=== PATIENT | male | born 1955 | race Caucasian/White ===

== ENCOUNTER 2017-07-04 09:38 | Inpatient (IN) ==
[2017-07-04] MEDS ORDERED: SODIUM CHLORIDE 0.9% 1,000 ML IV STA (10:03)
[2017-07-04 10:37] LABS: Basophils % 0.3 % (0.0-0.8); Eosinophils % 0.4 % (0.00-10.9); Hematocrit 38.7 VOL% (42.0-52.0); Hemoglobin 12.7 GM/DL (14.0-18.0); Immature Granulocytes % 0.4 %; Immature Granulocytes Absolute 0.04 #; Lymphocytes # 1.6 10*3/uL (1.4-4.0); Lymphocytes % 14.5 % (21.2-54.2); Mean Corpuscular HGB Conc 32.8 GM/DL (32-36); Mean Corpuscular Hemoglobin 27 PG (27-34); Mean Corpuscular Volume 83.2 FL (87-102); Mean Platelet Volume 9.7 FL (9.6-12.0); Monocytes # 0.5 10*3/uL (0.11-0.8); Monocytes % 4.9 % (1.7-12.7); Neutrophils # 8.9 10*3/uL (1.4-7.4); Neutrophils % 79.5 % (38.7-73.9); Platelet Count 249 T/CUMM (130-400); Red Blood Count 4.65 MC/CUMM (3.8-5.5); Red Cell Distribution Width 14.1 % (9.3-17.3); White Blood Count 11.1 T/CUMM (4-12)
[2017-07-04 10:41] LABS: Apearance,Urine CLEAR (Clear); Bilirubin,Urine Negative (Negative); Blood, Urine Negative (Negative); Glucose,Urine (UA) Negative (Negative); Hyaline Casts,Urine 2 /LPF (0-3); Ketones,Urine 5 mg/dL (Negative); Mucus,Urine Occasional /LPF (Occasional); Nitrite,Urine Negative (Negative); Protein,Urine 30 MG/DL; RBC,Urine <1 /HPF (0-4); Squamous Epithelial Cell,Urine Occasional /HPF (0-10); Urine Color Yellow (Yellow); Urine Specific Gravity 1.021 (1.001-1.035); Urine Urobilinogen < 2.0 EU/DL (0.2-1.0); WBC,Urine 1 /HPF (0-6)
[2017-07-04 11:03] LABS: Albumin 4.4 G/DL (3.4-5.0); Bilirubin,Total 0.5 MG/DL (0.2-1.0); Calcium 9.2 MG/DL (8.5-10.1); Osmolality,Calculated 280.8 MOS/KG (273-304); Potassium 3.9 MMOL/L (3.5-5.1)
[2017-07-04] MEDS ORDERED: ONDANSETRON 4 MG/2 ML VIAL IV STA (11:21)
[2017-07-04] MEDS ORDERED: HYDROmorphone 2 MG/1 ML VIAL IV STA (11:21)
[2017-07-04] MEDS ORDERED: ONDANSETRON 4 MG/2 ML VIAL ONE (11:40)
[2017-07-04] MEDS ORDERED: HYDROmorphone 2 MG/1 ML VIAL ONE (11:40)
[2017-07-04] MEDS ORDERED: ONDANSETRON 4 MG/2 ML VIAL IV PRN (14:02)
[2017-07-04] MEDS: HYDROmorphone 2 MG/1 ML VIAL IV PRN ×3 (14:19→21:33)
[2017-07-04] MEDS ORDERED: CIPROFLOXACIN INJ 400 MG in PREMIX 1 EACH IV SCH (15:00)
[2017-07-04] MEDS ORDERED: GLUCAGON 1 MG VIAL IM PRN (15:37)
[2017-07-04] MEDS ORDERED: DEXTROSE 50% 25 GM/50 ML VIAL IV PRN (15:37)
[2017-07-04] MEDS ORDERED: metroNIDAZOLE INJ 500 MG in PREMIX 1 EACH IV SCH (16:00)
[2017-07-04] MEDS: FAMOTIDINE 20 MG/2 ML VIAL IV SCH (16:59)
[2017-07-04] MEDS: SODIUM CHLORIDE 0.9% 1,000 ML IV SCH (17:02)
[2017-07-04] MEDS: INSULIN LISPRO 100 UNIT/ML SUBCUT SCH ×2 (17:21→21:25)
[2017-07-04] MEDS: BISACODYL 5 MG TABLET PO SCH (21:33)
[2017-07-05] MEDS: HYDROmorphone 2 MG/1 ML VIAL IV PRN ×8 (01:21→22:01)
[2017-07-05] MEDS: SODIUM CHLORIDE 0.9% 1,000 ML IV SCH ×3 (02:00→22:22)
[2017-07-05 05:42] LABS: Albumin 3.6 G/DL (3.4-5.0); Bilirubin,Total 1.3 MG/DL (0.2-1.0); Calcium 8.6 MG/DL (8.5-10.1); Magnesium 2.1 MG/DL (1.8-2.4); Osmolality,Calculated 283.4 MOS/KG (273-304); Potassium 4.3 MMOL/L (3.5-5.1); Total Protein 6.8 G/DL (6.4-8.3)
[2017-07-05] MEDS: DESVENLAFAXINE 50 MG TABLET PO SCH (09:57)
[2017-07-05] MEDS: amLODIPine 10 MG TABLET PO SCH (09:57)
[2017-07-05] MEDS: INSULIN LISPRO 100 UNIT/ML SUBCUT SCH ×4 (09:57→21:32)
[2017-07-05] MEDS: FAMOTIDINE 20 MG/2 ML VIAL IV SCH (15:27)
[2017-07-05] MEDS: PANTOPRAZOLE 40 MG VIAL IV SCH (21:33)
[2017-07-05] MEDS: BISACODYL 5 MG TABLET PO SCH (21:33)
[2017-07-06] MEDS: oxyCODONE/ACETAMINOPHEN 5-325 MG TABLET PO PRN ×3 (01:21→15:44)
[2017-07-06] MEDS: HYDROmorphone 2 MG/1 ML VIAL IV PRN ×6 (04:10→21:21)
[2017-07-06] MEDS: INSULIN LISPRO 100 UNIT/ML SUBCUT SCH ×4 (08:53→21:24)
[2017-07-06] MEDS: PANTOPRAZOLE 40 MG VIAL IV SCH ×2 (08:54→21:21)
[2017-07-06] MEDS: DESVENLAFAXINE 50 MG TABLET PO SCH (08:56)
[2017-07-06] MEDS: amLODIPine 10 MG TABLET PO SCH (08:56)
[2017-07-06] MEDS: SODIUM CHLORIDE 0.9% 1,000 ML IV SCH ×2 (09:52→22:40)
[2017-07-06] MEDS: METOPROLOL SUCCINATE XL 100 MG TABLET PO SCH (11:39)
[2017-07-06] MEDS: LEVOFLOXACIN INJ 250 MG in PREMIX 1 EACH IV SCH (14:28)
[2017-07-06] MEDS: metroNIDAZOLE INJ 500 MG in PREMIX 1 EACH IV SCH ×2 (15:41→23:19)
[2017-07-06] MEDS ORDERED: LABETALOL 20 MG/4 ML SYRINGE IV PRN (16:52)
[2017-07-06] MEDS: hydrALAZINE 25 MG TABLET PO SCH (21:21)
[2017-07-06] MEDS: BISACODYL 5 MG TABLET PO SCH (21:21)
[2017-07-06] MEDS: DEXTROSE 5% NACL 0.45% 1,000 ML IV SCH (21:21)
[2017-07-07] MEDS: oxyCODONE/ACETAMINOPHEN 5-325 MG TABLET PO PRN ×2 (00:14→05:28)
[2017-07-07] MEDS: HYDROmorphone 2 MG/1 ML VIAL IV PRN ×6 (02:15→23:31)
[2017-07-07 05:54] LABS: Basophils % 0.3 % (0.0-0.8); Eosinophils # 0.2 10*3/uL (0.0-0.87); Eosinophils % 1.7 % (0.00-10.9); Hematocrit 34.1 VOL% (42.0-52.0); Hemoglobin 11.3 GM/DL (14.0-18.0); Immature Granulocytes % 0.3 %; Immature Granulocytes Absolute 0.03 #; Lymphocytes # 1.5 10*3/uL (1.4-4.0); Lymphocytes % 15.9 % (21.2-54.2); Mean Corpuscular HGB Conc 33.1 GM/DL (32-36); Mean Corpuscular Hemoglobin 28 PG (27-34); Mean Platelet Volume 9.7 FL (9.6-12.0); Monocytes # 0.6 10*3/uL (0.11-0.8); Monocytes % 6.4 % (1.7-12.7); Neutrophils # 6.9 10*3/uL (1.4-7.4); Neutrophils % 75.4 % (38.7-73.9); Platelet Count 217 T/CUMM (130-400); Red Blood Count 4.11 MC/CUMM (3.8-5.5); Red Cell Distribution Width 13.7 % (9.3-17.3); White Blood Count 9.2 T/CUMM (4-12)
[2017-07-07] MEDS: DEXTROSE 5% NACL 0.45% 1,000 ML IV SCH ×2 (05:55→19:59)
[2017-07-07 06:20] LABS: Calcium 8.9 MG/DL (8.5-10.1); Osmolality,Calculated 278.7 MOS/KG (273-304); Potassium 3.9 MMOL/L (3.5-5.1)
[2017-07-07] MEDS: INSULIN LISPRO 100 UNIT/ML SUBCUT SCH ×4 (08:43→21:45)
[2017-07-07] MEDS: PANTOPRAZOLE 40 MG VIAL IV SCH ×2 (10:07→21:43)
[2017-07-07] MEDS: DESVENLAFAXINE 50 MG TABLET PO SCH (10:09)
[2017-07-07] MEDS: METOPROLOL SUCCINATE XL 100 MG TABLET PO SCH (10:10)
[2017-07-07] MEDS: metroNIDAZOLE INJ 500 MG in PREMIX 1 EACH IV SCH ×3 (10:10→23:32)
[2017-07-07] MEDS: amLODIPine 10 MG TABLET PO SCH (10:10)
[2017-07-07] MEDS: hydrALAZINE 25 MG TABLET PO SCH ×2 (10:10→21:43)
[2017-07-07] MEDS: LEVOFLOXACIN INJ 250 MG in PREMIX 1 EACH IV SCH (15:02)
[2017-07-07] MEDS: BISACODYL 5 MG TABLET PO SCH (21:43)
[2017-07-08] MEDS: HYDROmorphone 2 MG/1 ML VIAL IV PRN ×6 (02:40→22:45)
[2017-07-08 05:14] LABS: Basophils % 0.4 % (0.0-0.8); Eosinophils # 0.1 10*3/uL (0.0-0.87); Eosinophils % 1.9 % (0.00-10.9); Hematocrit 30.9 VOL% (42.0-52.0); Hemoglobin 10.6 GM/DL (14.0-18.0); Immature Granulocytes % 1.2 %; Immature Granulocytes Absolute 0.09 #; Lymphocytes # 1.7 10*3/uL (1.4-4.0); Lymphocytes % 22.7 % (21.2-54.2); Mean Corpuscular HGB Conc 34.3 GM/DL (32-36); Mean Corpuscular Hemoglobin 28 PG (27-34); Mean Corpuscular Volume 80.7 FL (87-102); Mean Platelet Volume 9.8 FL (9.6-12.0); Monocytes # 0.5 10*3/uL (0.11-0.8); Monocytes % 6.4 % (1.7-12.7); Neutrophils # 5.1 10*3/uL (1.4-7.4); Neutrophils % 67.4 % (38.7-73.9); Platelet Count 253 T/CUMM (130-400); Red Blood Count 3.83 MC/CUMM (3.8-5.5); Red Cell Distribution Width 13.6 % (9.3-17.3); White Blood Count 7.5 T/CUMM (4-12)
[2017-07-08 05:44] LABS: Calcium 8.4 MG/DL (8.5-10.1); Osmolality,Calculated 278.5 MOS/KG (273-304); Potassium 3.5 MMOL/L (3.5-5.1)
[2017-07-08] MEDS: metroNIDAZOLE INJ 500 MG in PREMIX 1 EACH IV SCH ×3 (07:59→22:44)
[2017-07-08] MEDS: INSULIN LISPRO 100 UNIT/ML SUBCUT SCH ×4 (08:00→21:40)
[2017-07-08] MEDS: PANTOPRAZOLE 40 MG VIAL IV SCH ×2 (09:19→20:06)
[2017-07-08] MEDS ORDERED: PROPOFOL 200 MG/20 ML VIAL IV ONE (12:09)
[2017-07-08] MEDS ORDERED: LIDOCAINE 2% 5 ML VIAL ONE (12:09)
[2017-07-08 13:26] LABS: AFP Tumor 1.6 NG/ML (0-8); Cancer Antigen 19-9 11.8 U/ML (0-37); Carcinoembryonic Antigen 1.2 NG/ML (0.0-5.0)
[2017-07-08] MEDS: LEVOFLOXACIN INJ 250 MG in PREMIX 1 EACH IV SCH (14:45)
[2017-07-08] MEDS: hydrALAZINE 25 MG TABLET PO SCH (14:45)
[2017-07-08] MEDS: METOPROLOL SUCCINATE XL 100 MG TABLET PO SCH (14:45)
[2017-07-08] MEDS: amLODIPine 10 MG TABLET PO SCH (14:45)
[2017-07-08] MEDS: DESVENLAFAXINE 50 MG TABLET PO SCH (14:46)
[2017-07-08] MEDS: DEXTROSE 5% NACL 0.45% 1,000 ML IV SCH ×2 (14:47→22:48)
[2017-07-08] MEDS: BISACODYL 5 MG TABLET PO SCH (20:04)
[2017-07-09] MEDS: HYDROmorphone 2 MG/1 ML VIAL IV PRN ×4 (02:10→18:39)
[2017-07-09 06:31] LABS: Basophils % 0.4 % (0.0-0.8); Eosinophils # 0.2 10*3/uL (0.0-0.87); Eosinophils % 3.2 % (0.00-10.9); Hemoglobin 9.4 GM/DL (14.0-18.0); Immature Granulocytes % 0.4 %; Immature Granulocytes Absolute 0.02 #; Lymphocytes # 1.5 10*3/uL (1.4-4.0); Lymphocytes % 30.1 % (21.2-54.2); Mean Corpuscular HGB Conc 33.6 GM/DL (32-36); Mean Corpuscular Hemoglobin 27 PG (27-34); Mean Corpuscular Volume 81.4 FL (87-102); Mean Platelet Volume 9.8 FL (9.6-12.0); Monocytes # 0.4 10*3/uL (0.11-0.8); Monocytes % 7.4 % (1.7-12.7); Neutrophils # 2.9 10*3/uL (1.4-7.4); Neutrophils % 58.5 % (38.7-73.9); Platelet Count 218 T/CUMM (130-400); Red Blood Count 3.44 MC/CUMM (3.8-5.5); Red Cell Distribution Width 13.9 % (9.3-17.3)
[2017-07-09 06:52] LABS: Osmolality,Calculated 277.7 MOS/KG (273-304); Potassium 3.4 MMOL/L (3.5-5.1)
[2017-07-09] MEDS: metroNIDAZOLE INJ 500 MG in PREMIX 1 EACH IV SCH ×3 (07:30→15:55)
[2017-07-09] MEDS: amLODIPine 10 MG TABLET PO SCH (09:05)
[2017-07-09] MEDS: METOPROLOL SUCCINATE XL 100 MG TABLET PO SCH (09:05)
[2017-07-09] MEDS: DESVENLAFAXINE 50 MG TABLET PO SCH (09:05)
[2017-07-09] MEDS: INSULIN LISPRO 100 UNIT/ML SUBCUT SCH ×4 (09:30→21:34)
[2017-07-09] MEDS: PANTOPRAZOLE 40 MG VIAL IV SCH ×2 (09:48→21:34)
[2017-07-09] MEDS: DEXTROSE 5% NACL 0.45% 1,000 ML IV SCH (12:09)
[2017-07-09] MEDS: LEVOFLOXACIN INJ 250 MG in PREMIX 1 EACH IV SCH (14:50)
[2017-07-09] MEDS: BISACODYL 5 MG TABLET PO SCH (21:34)
[2017-07-10] MEDS: metroNIDAZOLE INJ 500 MG in PREMIX 1 EACH IV SCH ×2 (00:29→07:53)
[2017-07-10] MEDS: DEXTROSE 5% NACL 0.45% 1,000 ML IV SCH ×2 (00:55→17:00)
[2017-07-10 02:21] LABS: Basophils % 0.4 % (0.0-0.8); Eosinophils # 0.2 10*3/uL (0.0-0.87); Eosinophils % 3.6 % (0.00-10.9); Hematocrit 27.8 VOL% (42.0-52.0); Hemoglobin 8.9 GM/DL (14.0-18.0); Immature Granulocytes % 0.4 %; Immature Granulocytes Absolute 0.02 #; Lymphocytes # 1.6 10*3/uL (1.4-4.0); Lymphocytes % 30.4 % (21.2-54.2); Mean Corpuscular Hemoglobin 27 PG (27-34); Mean Corpuscular Volume 83.2 FL (87-102); Mean Platelet Volume 10.1 FL (9.6-12.0); Monocytes # 0.4 10*3/uL (0.11-0.8); Monocytes % 7.1 % (1.7-12.7); Neutrophils % 58.1 % (38.7-73.9); Platelet Count 223 T/CUMM (130-400); Red Blood Count 3.34 MC/CUMM (3.8-5.5); White Blood Count 5.2 T/CUMM (4-12)
[2017-07-10 03:13] LABS: Calcium 7.7 MG/DL (8.5-10.1); Osmolality,Calculated 280.8 MOS/KG (273-304); Potassium 3.4 MMOL/L (3.5-5.1)
[2017-07-10] MEDS: oxyCODONE/ACETAMINOPHEN 5-325 MG TABLET PO PRN ×3 (06:30→23:34)
[2017-07-10] MEDS: INSULIN LISPRO 100 UNIT/ML SUBCUT SCH ×4 (07:53→20:41)
[2017-07-10] MEDS: DESVENLAFAXINE 50 MG TABLET PO SCH (08:08)
[2017-07-10] MEDS: amLODIPine 10 MG TABLET PO SCH (08:08)
[2017-07-10] MEDS: METOPROLOL SUCCINATE XL 100 MG TABLET PO SCH (08:08)
[2017-07-10] MEDS: PANTOPRAZOLE 40 MG VIAL IV SCH (08:09)
[2017-07-10] MEDS: POTASSIUM CHLORIDE 20 MEQ TABLET PO SCH (11:49)
[2017-07-10] MEDS: HYDROmorphone 2 MG/1 ML VIAL IV PRN ×2 (13:13→16:59)
[2017-07-10] MEDS: NITROGLYCERIN SL 0.4 MG TABLET SL PRN ×2 (15:12→15:17)
[2017-07-10 15:43] LABS: Troponin I Only 0.018 NG/ML (0.00-0.045)
[2017-07-10] MEDS: HYDROmorphone 2 MG TABLET PO PRN (20:41)
[2017-07-10] MEDS: BISACODYL 5 MG TABLET PO SCH (20:41)
[2017-07-10 20:48] LABS: Troponin I Only 0.027 NG/ML (0.00-0.045)
[2017-07-11] MEDS: DEXTROSE 5% NACL 0.45% 1,000 ML IV SCH ×2 (00:34→12:34)
[2017-07-11] MEDS: HYDROmorphone 2 MG TABLET PO PRN ×2 (04:36→08:11)
[2017-07-11 05:29] LABS: Basophils % 0.3 % (0.0-0.8); Eosinophils # 0.2 10*3/uL (0.0-0.87); Eosinophils % 2.8 % (0.00-10.9); Hematocrit 29.7 VOL% (42.0-52.0); Hemoglobin 9.7 GM/DL (14.0-18.0); Immature Granulocytes % 0.5 %; Immature Granulocytes Absolute 0.03 #; Lymphocytes # 1.9 10*3/uL (1.4-4.0); Lymphocytes % 32.6 % (21.2-54.2); Mean Corpuscular HGB Conc 32.7 GM/DL (32-36); Mean Corpuscular Hemoglobin 27 PG (27-34); Mean Corpuscular Volume 83.4 FL (87-102); Mean Platelet Volume 9.6 FL (9.6-12.0); Monocytes # 0.4 10*3/uL (0.11-0.8); Monocytes % 6.4 % (1.7-12.7); Neutrophils # 3.3 10*3/uL (1.4-7.4); Neutrophils % 57.4 % (38.7-73.9); Platelet Count 288 T/CUMM (130-400); Red Blood Count 3.56 MC/CUMM (3.8-5.5); Red Cell Distribution Width 14.4 % (9.3-17.3); White Blood Count 5.8 T/CUMM (4-12)
[2017-07-11 05:59] LABS: Calcium 8.3 MG/DL (8.5-10.1); Osmolality,Calculated 280.3 MOS/KG (273-304); Potassium 3.5 MMOL/L (3.5-5.1)
[2017-07-11 06:05] LABS: Troponin I Only 0.018 NG/ML (0.00-0.045)
[2017-07-11] MEDS: INSULIN LISPRO 100 UNIT/ML SUBCUT SCH ×2 (07:14→12:34)
[2017-07-11] MEDS: DESVENLAFAXINE 50 MG TABLET PO SCH (08:10)
[2017-07-11] MEDS: amLODIPine 10 MG TABLET PO SCH (08:10)
[2017-07-11] MEDS: METOPROLOL SUCCINATE XL 100 MG TABLET PO SCH (08:10)
[2017-07-11] MEDS: POTASSIUM CHLORIDE 20 MEQ TABLET PO SCH (08:11)
[2017-07-11 12:02] VITALS: BP 115/55
== END 2017-07-11 13:43 | disposition home or self-care (01) | DRG 439 ==
LOC: N.ED 09:38 → SUATTDRO 12:18 → N.EDINP 12:18 → N.TELEN 13:07
PROVIDERS: ADMIT Pediatrics; ATTEND Hospitalist

== ENCOUNTER 2019-02-02 07:36 | Inpatient (IN) ==
[2019-02-02] MEDS ORDERED: SODIUM CHLORIDE 0.9% 1,000 ML IV STA (08:32)
[2019-02-02 08:44] LABS: Basophils % 0.4 % (0.0-0.8); Eosinophils # 0.1 10*3/uL (0.0-0.87); Eosinophils % 1.9 % (0.00-10.9); Hematocrit 25.5 VOL% (42.0-52.0); Immature Granulocytes % 0.4 %; Immature Granulocytes Absolute 0.02 #; Lymphocytes # 1.7 10*3/uL (1.4-4.0); Lymphocytes % 33.3 % (21.2-54.2); Mean Corpuscular HGB Conc 31.4 GM/DL (32-36); Mean Corpuscular Volume 89.8 FL (87-102); Mean Platelet Volume 9.7 FL (9.6-12.0); Monocytes % 5.6 % (1.7-12.7); Neutrophils % 58.4 % (38.7-73.9); Platelet Count 176 T/CUMM (130-400); Red Blood Count 2.84 MC/CUMM (3.8-5.5); Red Cell Distribution Width 14.6 % (9.3-17.3); White Blood Count 5.2 T/CUMM (4-12)
[2019-02-02 09:06] LABS: Albumin 3.4 G/DL (3.4-5.0); Bilirubin,Total 0.5 MG/DL (0.2-1.0); Calcium 8.6 MG/DL (8.5-10.1); Osmolality,Calculated 297.3 MOS/KG (273-304); Total Protein 6.7 G/DL (6.4-8.3)
[2019-02-02 10:44] LABS: Apearance,Urine CLEAR (Clear); Bilirubin,Urine Negative (Negative); Blood, Urine Negative (Negative); Glucose,Urine (UA) Negative (Negative); Hyaline Casts,Urine 11 /LPF (0-3); Ketones,Urine Negative (Negative); Mucus,Urine Occasional /LPF (Occasional); Nitrite,Urine Negative (Negative); Protein,Urine Negative; Squamous Epithelial Cell,Urine Occasional /HPF (0-10); Urine Color Yellow (Yellow); Urine Urobilinogen < 2.0 EU/DL (0.2-1.0); WBC,Urine <1 /HPF (0-6)
[2019-02-02 10:50] LABS: Barbiturates Screen,Urine Negative (Negative); Benzodiazepines Screen,Urine Negative (Negative); Cannabinoid Screen,Urine Negative (Negative); Opiate Screen,Urine Positive (Negative); Phencyclidine Screen,Urine Negative (Negative)
[2019-02-02] MEDS ORDERED: GLUCAGON 1 MG VIAL IM PRN (13:03)
[2019-02-02] MEDS ORDERED: ONDANSETRON 4 MG/2 ML VIAL IV PRN (13:03)
[2019-02-02] MEDS ORDERED: DEXTROSE 50% 25 GM/50 ML VIAL IV PRN (13:03)
[2019-02-02] MEDS: SODIUM CHLORIDE 0.9% 1,000 ML IV SCH ×2 (14:39→23:45)
[2019-02-02] MEDS: PANTOPRAZOLE 40 MG TABLET PO SCH (15:25)
[2019-02-02] MEDS: INSULIN LISPRO 100 UNIT/ML SUBCUT SCH ×2 (15:39→20:50)
[2019-02-02 16:47] LABS: % Iron Saturation 36.4 % (18-50); Ferritin 356.9 ng/ml (26-388)
[2019-02-02 17:07] LABS: Folate 2.1 NG/ML (5.4-24.0)
[2019-02-02 17:07] LABS: Hemoglobin 8.2 GM/DL (14.0-18.0)
[2019-02-02] MEDS: GABAPENTIN 300 MG CAPSULE PO SCH (21:37)
[2019-02-02] MEDS: CYPROHEPTADINE 4 MG TABLET PO SCH (21:37)
[2019-02-02] MEDS: traZODone 50 MG TABLET PO SCH (23:57)
[2019-02-03 00:57] LABS: Hematocrit 22.9 VOL% (42.0-52.0); Hemoglobin 7.4 GM/DL (14.0-18.0)
[2019-02-03] MEDS ORDERED: SODIUM CHLORIDE 0.9% 1,000 ML IV PRN (03:33)
[2019-02-03 04:45] LABS: Basophils % 0.3 % (0.0-0.8); Eosinophils # 0.1 10*3/uL (0.0-0.87); Eosinophils % 1.1 % (0.00-10.9); Hematocrit 23.2 VOL% (42.0-52.0); Hemoglobin 7.4 GM/DL (14.0-18.0); Immature Granulocytes % 0.5 %; Immature Granulocytes Absolute 0.03 #; Lymphocytes # 1.3 10*3/uL (1.4-4.0); Lymphocytes % 19.1 % (21.2-54.2); Mean Corpuscular HGB Conc 31.9 GM/DL (32-36); Mean Corpuscular Volume 88.5 FL (87-102); Monocytes % 4.3 % (1.7-12.7); Neutrophils % 74.7 % (38.7-73.9); Platelet Count 186 T/CUMM (130-400); Red Blood Count 2.62 MC/CUMM (3.8-5.5); Red Cell Distribution Width 14.3 % (9.3-17.3); White Blood Count 6.6 T/CUMM (4-12)
[2019-02-03 04:46] LABS: Basophils % 0.3 % (0.0-0.8); Eosinophils # 0.1 10*3/uL (0.0-0.87); Eosinophils % 1.1 % (0.00-10.9); Hematocrit 22.8 VOL% (42.0-52.0); Hemoglobin 7.2 GM/DL (14.0-18.0); Immature Granulocytes % 0.3 %; Immature Granulocytes Absolute 0.02 #; Lymphocytes # 1.4 10*3/uL (1.4-4.0); Lymphocytes % 20.7 % (21.2-54.2); Mean Corpuscular HGB Conc 31.6 GM/DL (32-36); Mean Corpuscular Volume 90.1 FL (87-102); Mean Platelet Volume 10.2 FL (9.6-12.0); Monocytes % 5.4 % (1.7-12.7); Neutrophils % 72.2 % (38.7-73.9); Platelet Count 183 T/CUMM (130-400); Red Blood Count 2.53 MC/CUMM (3.8-5.5); Red Cell Distribution Width 14.3 % (9.3-17.3); White Blood Count 6.6 T/CUMM (4-12)
[2019-02-03 05:24] LABS: Ferritin 335.7 ng/ml (26-388)
[2019-02-03 05:27] LABS: Calcium 8.2 MG/DL (8.5-10.1); Osmolality,Calculated 295.8 MOS/KG (273-304); Thyroid Stimulating Hormone 0.239 uIU/ml (0.358-3.74)
[2019-02-03 06:40] LABS: Folate 1.6 NG/ML (5.4-24.0); Vitamin B12 330 PG/ML (211-911)
[2019-02-03 06:44] LABS: Sedimentation Rate-Westergren 17 MM/HR (0-20)
[2019-02-03 07:20] LABS: HIV Antigen/Antibody Result Nonreactive (Nonreactive)
[2019-02-03] MEDS: SODIUM CHLORIDE 0.9% 1,000 ML IV SCH ×7 (07:36→20:48)
[2019-02-03] MEDS: INSULIN LISPRO 100 UNIT/ML SUBCUT SCH ×4 (07:56→21:11)
[2019-02-03] MEDS: CYPROHEPTADINE 4 MG TABLET PO SCH ×3 (08:28→20:42)
[2019-02-03] MEDS: ATORVASTATIN 40 MG TABLET PO SCH (08:28)
[2019-02-03] MEDS: PANTOPRAZOLE 40 MG TABLET PO SCH (08:28)
[2019-02-03] MEDS: ASPIRIN EC 81 MG TABLET PO SCH (08:29)
[2019-02-03] MEDS ORDERED: PROPOFOL 200 MG/20 ML VIAL IV ONE (09:00)
[2019-02-03] MEDS ORDERED: LIDOCAINE 2% 5 ML VIAL ONE (09:00)
[2019-02-03] MEDS ORDERED: FOLIC ACID 1 MG TABLET PO SCH (09:00)
[2019-02-03] MEDS ORDERED: ETOMIDATE 20 MG/10 ML VIAL IV ONE (09:00)
[2019-02-03 09:44] LABS: Hemoglobin A1 (Alkaline) 97.7 % (96.5-98.5); Hemoglobin A2 (Alkaline) 2.3 % (1.5-3.5)
[2019-02-03 13:58] LABS: Hematocrit 30.9 VOL% (42.0-52.0)
[2019-02-03] MEDS ORDERED: MAGNESIUM SULF RIDER 2 GM in PREMIX 1 EACH IV ONE (14:56)
[2019-02-03] MEDS: oxyCODONE/ACETAMINOPHEN 5-325 MG TABLET PO PRN (15:45)
[2019-02-03] MEDS: traZODone 50 MG TABLET PO SCH (20:41)
[2019-02-03] MEDS: DRONABINOL 2.5 MG CAPSULE PO SCH (20:42)
[2019-02-03] MEDS: GABAPENTIN 300 MG CAPSULE PO SCH (20:42)
[2019-02-03] MEDS: ENOXAPARIN 30 MG/0.3 ML SYRINGE SUBCUT SCH (20:44)
[2019-02-04] MEDS: oxyCODONE/ACETAMINOPHEN 5-325 MG TABLET PO PRN ×3 (01:34→20:52)
[2019-02-04 05:33] LABS: Basophils % 0.3 % (0.0-0.8); Eosinophils # 0.1 10*3/uL (0.0-0.87); Eosinophils % 0.9 % (0.00-10.9); Hematocrit 29.4 VOL% (42.0-52.0); Hemoglobin 9.7 GM/DL (14.0-18.0); Immature Granulocytes % 0.3 %; Immature Granulocytes Absolute 0.03 #; Lymphocytes # 1.4 10*3/uL (1.4-4.0); Mean Corpuscular Volume 87.5 FL (87-102); Mean Platelet Volume 10.1 FL (9.6-12.0); Monocytes % 4.7 % (1.7-12.7); Neutrophils % 78.8 % (38.7-73.9); Platelet Count 165 T/CUMM (130-400); Red Blood Count 3.36 MC/CUMM (3.8-5.5); Red Cell Distribution Width 14.2 % (9.3-17.3); White Blood Count 9.2 T/CUMM (4-12)
[2019-02-04 05:44] LABS: Calcium 8.3 MG/DL (8.5-10.1); Osmolality,Calculated 295.6 MOS/KG (273-304)
[2019-02-04 05:53] LABS: Free T4 (Free Thyroxine) 1.12 NG/DL (0.76-1.46)
[2019-02-04] MEDS: SODIUM CHLORIDE 0.9% 1,000 ML IV SCH ×3 (06:29→21:56)
[2019-02-04] MEDS: INSULIN LISPRO 100 UNIT/ML SUBCUT SCH ×3 (07:42→15:32)
[2019-02-04] MEDS: CYPROHEPTADINE 4 MG TABLET PO SCH ×3 (09:00→20:52)
[2019-02-04] MEDS: FOLIC ACID 1 MG TABLET PO SCH (11:44)
[2019-02-04] MEDS: PANTOPRAZOLE 40 MG TABLET PO SCH (11:45)
[2019-02-04] MEDS: MULTIVITAMIN (BEROCCA) TABLET PO SCH (11:45)
[2019-02-04] MEDS: CYANOCOBALAMIN 500 MCG TABLET PO SCH (11:45)
[2019-02-04] MEDS: ATORVASTATIN 40 MG TABLET PO SCH (11:46)
[2019-02-04] MEDS: MAGNESIUM CHLORIDE 64 MG TABLET PO SCH (11:46)
[2019-02-04] MEDS: ASPIRIN EC 81 MG TABLET PO SCH (11:46)
[2019-02-04] MEDS: DRONABINOL 2.5 MG CAPSULE PO SCH (11:46)
[2019-02-04] MEDS: METOPROLOL SUCCINATE XL 50 MG TABLET PO SCH (11:59)
[2019-02-04] MEDS ORDERED: POLYETHYLENE GLYCOL 3350/ELECTROLYTES 4,000 ML BOTTLE PEG ONE (15:43)
[2019-02-04] MEDS: BISACODYL 5 MG TABLET PO SCH (16:31)
[2019-02-04] MEDS: METOCLOPRAMIDE 10 MG/2 ML VIAL IV SCH (17:47)
[2019-02-04] MEDS: POTASSIUM CHLORIDE 20 MEQ/15 ML UDCUP NG SCH ×2 (17:51→20:57)
[2019-02-04] MEDS: GABAPENTIN 300 MG CAPSULE PO SCH (20:52)
[2019-02-04] MEDS: traZODone 50 MG TABLET PO SCH (20:52)
[2019-02-04] MEDS: ENOXAPARIN 30 MG/0.3 ML SYRINGE SUBCUT SCH (20:53)
[2019-02-04] MEDS ORDERED: MAGNESIUM CITRATE 300 ML BOTTLE PO ONE (21:00)
[2019-02-05] MEDS: METOCLOPRAMIDE 10 MG/2 ML VIAL IV SCH ×4 (02:15→18:11)
[2019-02-05] MEDS: oxyCODONE/ACETAMINOPHEN 5-325 MG TABLET PO PRN ×3 (02:47→21:22)
[2019-02-05] MEDS: INSULIN LISPRO 100 UNIT/ML SUBCUT SCH ×5 (02:52→21:26)
[2019-02-05] MEDS: BISACODYL 5 MG TABLET PO SCH (02:53)
[2019-02-05 06:15] LABS: Basophils % 0.2 % (0.0-0.8); Eosinophils % 0.2 % (0.00-10.9); Hematocrit 29.1 VOL% (42.0-52.0); Hemoglobin 9.4 GM/DL (14.0-18.0); Immature Granulocytes % 0.6 %; Immature Granulocytes Absolute 0.07 #; Lymphocytes # 1.2 10*3/uL (1.4-4.0); Lymphocytes % 10.2 % (21.2-54.2); Mean Corpuscular HGB Conc 32.3 GM/DL (32-36); Mean Platelet Volume 10.1 FL (9.6-12.0); Monocytes % 4.1 % (1.7-12.7); Neutrophils % 84.7 % (38.7-73.9); Platelet Count 151 T/CUMM (130-400); Red Blood Count 3.27 MC/CUMM (3.8-5.5); Red Cell Distribution Width 14.4 % (9.3-17.3)
[2019-02-05 06:42] LABS: Calcium 8.4 MG/DL (8.5-10.1); Osmolality,Calculated 292.8 MOS/KG (273-304)
[2019-02-05] MEDS: ASPIRIN EC 81 MG TABLET PO SCH (11:34)
[2019-02-05] MEDS: MAGNESIUM CHLORIDE 64 MG TABLET PO SCH (11:34)
[2019-02-05] MEDS: CYPROHEPTADINE 4 MG TABLET PO SCH ×3 (11:34→21:26)
[2019-02-05] MEDS: CHOLECALCIFEROL 1,000 UNIT TABLET PO SCH (11:34)
[2019-02-05] MEDS: FOLIC ACID 1 MG TABLET PO SCH (11:34)
[2019-02-05] MEDS: POTASSIUM CHLORIDE 20 MEQ/15 ML UDCUP NG SCH ×3 (11:34→21:26)
[2019-02-05] MEDS: CYANOCOBALAMIN 500 MCG TABLET PO SCH (11:35)
[2019-02-05] MEDS: PANTOPRAZOLE 40 MG TABLET PO SCH (11:35)
[2019-02-05] MEDS: MULTIVITAMIN (BEROCCA) TABLET PO SCH (11:35)
[2019-02-05] MEDS: METOPROLOL SUCCINATE XL 50 MG TABLET PO SCH (11:35)
[2019-02-05] MEDS: ATORVASTATIN 40 MG TABLET PO SCH (11:35)
[2019-02-05] MEDS ORDERED: ETOMIDATE 40 MG/20 ML VIAL IV ONE (12:00)
[2019-02-05] MEDS ORDERED: PROPOFOL 200 MG/20 ML VIAL IV ONE (12:00)
[2019-02-05] MEDS: GABAPENTIN 300 MG CAPSULE PO SCH (21:23)
[2019-02-05] MEDS: traZODone 50 MG TABLET PO SCH (21:25)
[2019-02-05] MEDS: ENOXAPARIN 30 MG/0.3 ML SYRINGE SUBCUT SCH (21:25)
[2019-02-05] MEDS: SODIUM CHLORIDE 0.9% 1,000 ML IV SCH (21:30)
[2019-02-06] MEDS: oxyCODONE/ACETAMINOPHEN 5-325 MG TABLET PO PRN ×2 (03:09→08:35)
[2019-02-06 03:23] LABS: Basophils % 0.2 % (0.0-0.8); Eosinophils # 0.1 10*3/uL (0.0-0.87); Hematocrit 28.8 VOL% (42.0-52.0); Hemoglobin 9.3 GM/DL (14.0-18.0); Immature Granulocytes % 0.5 %; Immature Granulocytes Absolute 0.04 #; Lymphocytes # 1.3 10*3/uL (1.4-4.0); Mean Corpuscular HGB Conc 32.3 GM/DL (32-36); Mean Corpuscular Volume 88.1 FL (87-102); Mean Platelet Volume 9.7 FL (9.6-12.0); Monocytes % 4.7 % (1.7-12.7); Neutrophils % 77.6 % (38.7-73.9); Platelet Count 146 T/CUMM (130-400); Red Blood Count 3.27 MC/CUMM (3.8-5.5); Red Cell Distribution Width 14.3 % (9.3-17.3); White Blood Count 8.3 T/CUMM (4-12)
[2019-02-06 03:35] LABS: Calcium 8.1 MG/DL (8.5-10.1); Osmolality,Calculated 289.8 MOS/KG (273-304)
[2019-02-06] MEDS: METOCLOPRAMIDE 10 MG/2 ML VIAL IV SCH ×3 (08:11→12:06)
[2019-02-06] MEDS: BISACODYL 5 MG TABLET PO SCH (08:11)
[2019-02-06] MEDS: ASPIRIN EC 81 MG TABLET PO SCH (08:34)
[2019-02-06] MEDS: CYPROHEPTADINE 4 MG TABLET PO SCH (08:34)
[2019-02-06] MEDS: FOLIC ACID 1 MG TABLET PO SCH (08:34)
[2019-02-06] MEDS: METOPROLOL SUCCINATE XL 50 MG TABLET PO SCH (08:35)
[2019-02-06] MEDS: CHOLECALCIFEROL 1,000 UNIT TABLET PO SCH (08:35)
[2019-02-06] MEDS: CYANOCOBALAMIN 500 MCG TABLET PO SCH (08:35)
[2019-02-06] MEDS: MAGNESIUM CHLORIDE 64 MG TABLET PO SCH (08:36)
[2019-02-06] MEDS: PANTOPRAZOLE 40 MG TABLET PO SCH (08:36)
[2019-02-06] MEDS: MULTIVITAMIN (BEROCCA) TABLET PO SCH (08:36)
[2019-02-06] MEDS: INSULIN LISPRO 100 UNIT/ML SUBCUT SCH ×2 (08:36→11:52)
[2019-02-06] MEDS: ATORVASTATIN 40 MG TABLET PO SCH (08:36)
[2019-02-06 11:58] VITALS: BP 152/72
[2019-02-07 21:31] LABS: IgA Serum (MAYO) 275 mg/dL (61 - 356)
[2019-02-15 14:12] LABS: Tissue Transglutaminase IgA Ab < 1.2 U/mL
== END 2019-02-06 13:29 | disposition home or self-care (01) | DRG 812 ==
LOC: N.ED 07:36 → N.EDINP 07:36 → MERGE 07:36 → N.4E 14:20 → SUATTDRO 02-03 15:04
PROVIDERS: ADMIT Hospitalist; ATTEND Hospitalist

== ENCOUNTER 2019-04-18 17:48 | Observation (INO) ==
[2019-04-18 18:59] LABS: Basophils # 0.1 10*3/uL (0.0-0.2); Basophils % 0.8 % (0.0-0.8); Eosinophils # 0.1 10*3/uL (0.0-0.87); Eosinophils % 1.4 % (0.00-10.9); Immature Granulocytes % 0.3 %; Immature Granulocytes Absolute 0.02 #; Lymphocytes # 2.3 10*3/uL (1.4-4.0); Lymphocytes % 36.1 % (21.2-54.2); Mean Corpuscular Volume 92.9 FL (87-102); Mean Platelet Volume 9.5 FL (9.6-12.0); Monocytes % 5.4 % (1.7-12.7); Platelet Count 305 T/CUMM (130-400); Red Blood Count 2.69 MC/CUMM (3.8-5.5); Red Cell Distribution Width 14.1 % (9.3-17.3); White Blood Count 6.5 T/CUMM (4-12)
[2019-04-18 19:34] LABS: Albumin 3.4 G/DL (3.4-5.0); Bilirubin,Total 0.8 MG/DL (0.2-1.0); Calcium 8.4 MG/DL (8.5-10.1); Osmolality,Calculated 281.4 MOS/KG (273-304); Total Protein 6.6 G/DL (6.4-8.3)
[2019-04-18] MEDS ORDERED: METOCLOPRAMIDE 10 MG/2 ML VIAL IV STA (19:46)
[2019-04-18] MEDS ORDERED: ONDANSETRON 4 MG/2 ML VIAL IV STA (19:46)
[2019-04-18 19:49] LABS: Troponin I < 0.015 NG/ML (0.00-0.045)
[2019-04-18 21:47] LABS: Apearance,Urine CLEAR (Clear); Bacteria,Urine Occasional /HPF (Few); Bilirubin,Urine Negative (Negative); Blood, Urine Negative (Negative); Glucose,Urine (UA) Negative (Negative); Hyaline Casts,Urine 7 /LPF (0-3); Ketones,Urine Negative (Negative); Mucus,Urine Occasional /LPF (Occasional); Nitrite,Urine Positive (Negative); Protein,Urine Negative; RBC,Urine 3 /HPF (0-4); Squamous Epithelial Cell,Urine Occasional /HPF (0-10); Urine Color Yellow (Yellow); Urine Specific Gravity 1.008 (1.001-1.035); Urine Urobilinogen < 2.0 EU/DL (0.2-1.0); WBC,Urine 8 /HPF (0-6)
[2019-04-18] MEDS ORDERED: diphenhydrAMINE CAP 25 MG CAPSULE PO PRN (22:08)
[2019-04-18] MEDS ORDERED: ACETAMINOPHEN 325 MG TABLET PO PRN (22:08)
[2019-04-18] MEDS ORDERED: ONDANSETRON 4 MG/2 ML VIAL IV PRN (22:08)
[2019-04-18] MEDS ORDERED: guaiFENesin/DM ER 600-30 MG TABLET PO PRN (22:08)
[2019-04-18] MEDS ORDERED: ZALEPLON 5 MG CAPSULE PO PRN (22:08)
[2019-04-18] MEDS ORDERED: SODIUM CHLORIDE 0.9% 1,000 ML IV PRN (22:08)
[2019-04-18] MEDS ORDERED: NICOTINE 21 MG/24 HR PATCH TRANSDERM PRN (22:08)
[2019-04-18 22:22] LABS: Basophils % 0.6 % (0.0-0.8); Eosinophils # 0.1 10*3/uL (0.0-0.87); Eosinophils % 1.2 % (0.00-10.9); Hematocrit 25.7 VOL% (42.0-52.0); Hemoglobin 7.9 GM/DL (14.0-18.0); Immature Granulocytes % 0.5 %; Immature Granulocytes Absolute 0.03 #; Lymphocytes # 2.3 10*3/uL (1.4-4.0); Lymphocytes % 35.2 % (21.2-54.2); Mean Corpuscular HGB Conc 30.7 GM/DL (32-36); Mean Corpuscular Volume 94.5 FL (87-102); Mean Platelet Volume 10.4 FL (9.6-12.0); Monocytes % 6.2 % (1.7-12.7); Neutrophils % 56.3 % (38.7-73.9); Platelet Count 310 T/CUMM (130-400); Red Blood Count 2.72 MC/CUMM (3.8-5.5); White Blood Count 6.6 T/CUMM (4-12)
[2019-04-18 22:42] LABS: Folate > 24.0 NG/ML (5.4-24.0); Vitamin B12 > 2000 PG/ML (211-911)
[2019-04-18 23:25] LABS: Sedimentation Rate-Westergren 28 MM/HR (0-20)
[2019-04-19] MEDS ORDERED: tiZANidine 4 MG TABLET PO PRN (00:32)
[2019-04-19] MEDS: MORPHINE 4 MG/1 ML VIAL IV PRN ×2 (01:33→16:50)
[2019-04-19] MEDS: traZODone 50 MG TABLET PO SCH ×2 (02:43→20:59)
[2019-04-19] MEDS: cefTRIAXone 1,000 MG in SYRINGE 1 EACH IV SCH (04:05)
[2019-04-19] MEDS: oxyCODONE/ACETAMINOPHEN 5-325 MG TABLET PO PRN ×2 (04:37→20:59)
[2019-04-19 08:48] LABS: Hemoglobin A1 (Alkaline) 97.3 % (96.5-98.5); Hemoglobin A2 (Alkaline) 2.7 % (1.5-3.5)
[2019-04-19] MEDS ORDERED: FENOFIBRIC ACID PO SCH (09:00)
[2019-04-19] MEDS ORDERED: COSYNTROPIN 0.25 MG VIAL IV ONE (09:00)
[2019-04-19 09:07] LABS: Basophils % 0.7 % (0.0-0.8); Eosinophils # 0.1 10*3/uL (0.0-0.87); Eosinophils % 1.9 % (0.00-10.9); Hemoglobin 8.8 GM/DL (14.0-18.0); Immature Granulocytes % 0.2 %; Immature Granulocytes Absolute 0.01 #; Lymphocytes # 2.3 10*3/uL (1.4-4.0); Lymphocytes % 40.6 % (21.2-54.2); Mean Corpuscular HGB Conc 32.6 GM/DL (32-36); Mean Platelet Volume 9.8 FL (9.6-12.0); Monocytes % 7.2 % (1.7-12.7); Neutrophils % 49.4 % (38.7-73.9); Platelet Count 252 T/CUMM (130-400); Red Cell Distribution Width 14.2 % (9.3-17.3); White Blood Count 5.7 T/CUMM (4-12)
[2019-04-19] MEDS: MAGNESIUM CHLORIDE 64 MG TABLET PO SCH (09:12)
[2019-04-19] MEDS: MORPHINE ER 15 MG TABLET PO PRN ×2 (09:13→23:53)
[2019-04-19] MEDS: CYANOCOBALAMIN 500 MCG TABLET PO SCH (09:13)
[2019-04-19] MEDS: CHOLECALCIFEROL 1,000 UNIT TABLET PO SCH (09:14)
[2019-04-19] MEDS: FOLIC ACID 1 MG TABLET PO SCH (09:15)
[2019-04-19] MEDS: PANTOPRAZOLE 40 MG TABLET PO SCH (09:15)
[2019-04-19] MEDS: MULTIVITAMIN (BEROCCA) TABLET PO SCH (09:16)
[2019-04-19] MEDS: POTASSIUM CHLORIDE 20 MEQ TABLET PO SCH (09:16)
[2019-04-19] MEDS: METOPROLOL SUCCINATE XL 100 MG TABLET PO SCH (09:16)
[2019-04-19] MEDS: amLODIPine 10 MG TABLET PO SCH (09:17)
[2019-04-19] MEDS: SODIUM CHLORIDE 0.9% 1,000 ML IV SCH ×2 (13:19→14:50)
[2019-04-19 15:24] LABS: Hematocrit 27.4 VOL% (42.0-52.0); Hemoglobin 8.8 GM/DL (14.0-18.0)
[2019-04-19] MEDS ORDERED: SODIUM CHLORIDE 0.9% 250 ML IV PRN (15:33)
[2019-04-19] MEDS ORDERED: GABAPENTIN 300 MG CAPSULE PO SCH (22:30)
[2019-04-20] MEDS: cefTRIAXone 1,000 MG in SYRINGE 1 EACH IV SCH (00:21)
[2019-04-20 04:52] LABS: Hematocrit 34.4 VOL% (42.0-52.0); Hemoglobin 11.5 GM/DL (14.0-18.0)
[2019-04-20 04:53] LABS: Basophils % 0.4 % (0.0-0.8); Eosinophils # 0.1 10*3/uL (0.0-0.87); Hematocrit 35.3 VOL% (42.0-52.0); Hemoglobin 11.5 GM/DL (14.0-18.0); Immature Granulocytes % 0.3 %; Immature Granulocytes Absolute 0.02 #; Lymphocytes # 1.5 10*3/uL (1.4-4.0); Lymphocytes % 20.2 % (21.2-54.2); Mean Corpuscular HGB Conc 32.6 GM/DL (32-36); Mean Corpuscular Volume 88.5 FL (87-102); Mean Platelet Volume 9.3 FL (9.6-12.0); Monocytes % 3.9 % (1.7-12.7); Neutrophils % 73.2 % (38.7-73.9); Platelet Count 190 T/CUMM (130-400); Red Blood Count 3.99 MC/CUMM (3.8-5.5); Red Cell Distribution Width 15.3 % (9.3-17.3); White Blood Count 7.2 T/CUMM (4-12)
[2019-04-20 05:20] LABS: Calcium 7.8 MG/DL (8.5-10.1)
[2019-04-20 05:55] LABS: Total Protein (Chem) 6.4 G/DL (6.4-8.3)
[2019-04-20] MEDS ORDERED: MAGNESIUM SULF RIDER 4 GM in PREMIX 1 EACH IV ONE (07:57)
[2019-04-20] MEDS ORDERED: LACTATED RINGERS 1,000 ML IV SCH (08:00)
[2019-04-20 09:26] LABS: Albumin (SPE) 4.2 G/DL (3.2-5.3); Albumin (SPE) Rel % 65.5 %; Alpha 1 (SPE) 0.2 G/DL (0.1-0.4); Alpha 1 (SPE) Rel % 3.4 %; Alpha 2 (SPE) 0.6 G/DL (0.4-1.0); Alpha 2 (SPE) Rel % 9.6 %; Beta (SPE) 0.6 G/DL (0.5-1.1); Beta (SPE) Rel % 9.5 %; Gamma (SPE) 0.8 G/DL (0.7-1.7)
[2019-04-20] MEDS ORDERED: LIDOCAINE 100 MG/5 ML SYRINGE ONE (10:00)
[2019-04-20] MEDS ORDERED: PROPOFOL 200 MG/20 ML VIAL IV ONE (10:00)
[2019-04-20] MEDS: MAGNESIUM CHLORIDE 64 MG TABLET PO SCH (13:53)
[2019-04-20] MEDS: FOLIC ACID 1 MG TABLET PO SCH (13:53)
[2019-04-20] MEDS: CHOLECALCIFEROL 1,000 UNIT TABLET PO SCH (13:54)
[2019-04-20] MEDS: amLODIPine 10 MG TABLET PO SCH (13:54)
[2019-04-20] MEDS: POTASSIUM CHLORIDE 20 MEQ TABLET PO SCH (13:55)
[2019-04-20] MEDS: CYANOCOBALAMIN 500 MCG TABLET PO SCH (13:55)
[2019-04-20] MEDS: METOPROLOL SUCCINATE XL 100 MG TABLET PO SCH (13:56)
[2019-04-20] MEDS: MULTIVITAMIN (BEROCCA) TABLET PO SCH (13:56)
[2019-04-20] MEDS: PANTOPRAZOLE 40 MG TABLET PO SCH (13:56)
[2019-04-20] MEDS: SODIUM CHLORIDE 0.9% 1,000 ML IV SCH ×2 (14:55→19:19)
[2019-04-20] MEDS: MORPHINE ER 15 MG TABLET PO PRN (16:44)
[2019-04-20 16:55] VITALS: BP 110/59
== END 2019-04-20 17:30 | disposition home or self-care (01) ==
LOC: N.EDINP 17:48 → N.ED 17:48 → SUATTDRO 22:08 → N.4E 23:01
PROVIDERS: ADMIT Internal Medicine; ATTEND Internal Medicine

== ENCOUNTER 2019-07-12 10:38 | Inpatient (IN) ==
[2019-07-12] MEDS ORDERED: PANTOPRAZOLE 40 MG VIAL IV STA (11:01)
[2019-07-12 11:31] LABS: Basophils % 0.8 % (0.0-0.8); Eosinophils # 0.1 10*3/uL (0.0-0.87); Eosinophils % 2.9 % (0.00-10.9); Hematocrit 24.2 VOL% (42.0-52.0); Hemoglobin 7.6 GM/DL (14.0-18.0); Immature Granulocytes % 0.4 %; Immature Granulocytes Absolute 0.02 #; Lymphocytes # 1.7 10*3/uL (1.4-4.0); Lymphocytes % 35.2 % (21.2-54.2); Mean Corpuscular HGB Conc 31.4 GM/DL (32-36); Mean Corpuscular Volume 97.6 FL (87-102); Mean Platelet Volume 9.2 FL (9.6-12.0); Monocytes % 6.7 % (1.7-12.7); Platelet Count 210 T/CUMM (130-400); Red Blood Count 2.48 MC/CUMM (3.8-5.5); White Blood Count 4.8 T/CUMM (4-12)
[2019-07-12 11:39] LABS: INR 1.1; PT Patient Result 11.8 SECS (9.6-12.2)
[2019-07-12 11:53] LABS: Albumin 2.2 G/DL (3.4-5.0); Bilirubin,Total 0.4 MG/DL (0.2-1.0); Calcium 7.5 MG/DL (8.5-10.1); Osmolality,Calculated 279.7 MOS/KG (273-304); Total Protein 5.6 G/DL (6.4-8.3)
[2019-07-12] MEDS ORDERED: DOCUSATE SODIUM 100 MG CAPSULE PO PRN (12:46)
[2019-07-12] MEDS ORDERED: ACETAMINOPHEN 325 MG TABLET PO PRN (12:46)
[2019-07-12 13:17] LABS: Risk Ratio 2.45; Thyroid Stimulating Hormone 1.1 uIU/ml (0.358-3.74)
[2019-07-12 14:34] LABS: Hematocrit 26.7 VOL% (42.0-52.0); Hemoglobin 8.4 GM/DL (14.0-18.0)
[2019-07-12] MEDS: SODIUM CHLORIDE 0.9% 1,000 ML IV SCH ×2 (18:53→22:43)
[2019-07-12 19:08] LABS: Hematocrit 22.1 VOL% (42.0-52.0)
[2019-07-12] MEDS: tiZANidine 4 MG TABLET PO SCH (20:10)
[2019-07-12] MEDS: PANTOPRAZOLE 40 MG VIAL IV SCH (20:10)
[2019-07-12] MEDS: FUROSEMIDE 20 MG TABLET PO SCH (20:11)
[2019-07-12] MEDS: FOLIC ACID 1 MG TABLET PO SCH (20:11)
[2019-07-12] MEDS: oxyCODONE/ACETAMINOPHEN 5-325 MG TABLET PO PRN (20:14)
[2019-07-12] MEDS ORDERED: GABAPENTIN 300 MG CAPSULE PO SCH (21:00)
[2019-07-12] MEDS ORDERED: traZODone 50 MG TABLET PO SCH (21:00)
[2019-07-13] MEDS: MORPHINE ER 15 MG TABLET PO SCH ×2 (00:55→09:10)
[2019-07-13 01:06] LABS: Hematocrit 20.3 VOL% (42.0-52.0); Hemoglobin 6.5 GM/DL (14.0-18.0)
[2019-07-13] MEDS: oxyCODONE/ACETAMINOPHEN 5-325 MG TABLET PO PRN ×2 (03:06→11:41)
[2019-07-13 05:56] LABS: Basophils % 0.5 % (0.0-0.8); Basophils % 0.7 % (0.0-0.8); Eosinophils # 0.1 10*3/uL (0.0-0.87); Eosinophils % 2.5 % (0.00-10.9); Eosinophils % 3.1 % (0.00-10.9); Hematocrit 22.5 VOL% (42.0-52.0); Hematocrit 23.3 VOL% (42.0-52.0); Hemoglobin 7.1 GM/DL (14.0-18.0); Hemoglobin 7.3 GM/DL (14.0-18.0); Immature Granulocytes % 0.5 %; Immature Granulocytes Absolute 0.02 #; Lymphocytes # 1.5 10*3/uL (1.4-4.0); Lymphocytes # 1.6 10*3/uL (1.4-4.0); Lymphocytes % 39.8 % (21.2-54.2); Lymphocytes % 40.6 % (21.2-54.2); Mean Corpuscular HGB Conc 31.3 GM/DL (32-36); Mean Corpuscular HGB Conc 31.6 GM/DL (32-36); Mean Corpuscular Volume 95.7 FL (87-102); Mean Corpuscular Volume 98.3 FL (87-102); Mean Platelet Volume 9.2 FL (9.6-12.0); Mean Platelet Volume 9.4 FL (9.6-12.0); Monocytes % 4.5 % (1.7-12.7); Monocytes % 5.4 % (1.7-12.7); Neutrophils % 50.7 % (38.7-73.9); Neutrophils % 51.2 % (38.7-73.9); Platelet Count 208 T/CUMM (130-400); Platelet Count 209 T/CUMM (130-400); Red Blood Count 2.35 MC/CUMM (3.8-5.5); Red Blood Count 2.37 MC/CUMM (3.8-5.5); Red Cell Distribution Width 17.2 % (9.3-17.3); White Blood Count 3.9 T/CUMM (4-12)
[2019-07-13 06:13] LABS: Calcium 7.2 MG/DL (8.5-10.1)
[2019-07-13] MEDS: SODIUM CHLORIDE 0.9% 1,000 ML IV SCH (06:20)
[2019-07-13 06:26] LABS: Folate > 24.0 NG/ML (5.4-24.0); Vitamin B12 1000 PG/ML (211-911)
[2019-07-13 06:35] LABS: % Iron Saturation 63.6 % (18-50)
[2019-07-13 07:08] LABS: Sedimentation Rate-Westergren 14 MM/HR (0-20)
[2019-07-13] MEDS ORDERED: amLODIPine 10 MG TABLET PO SCH (09:00)
[2019-07-13] MEDS ORDERED: CLOPIDOGREL 75 MG TABLET PO SCH (09:00)
[2019-07-13] MEDS ORDERED: ASPIRIN 325 MG TABLET PO SCH (09:00)
[2019-07-13] MEDS ORDERED: ATORVASTATIN 40 MG TABLET PO SCH (09:00)
[2019-07-13] MEDS ORDERED: METOPROLOL SUCCINATE XL 100 MG TABLET PO SCH (09:00)
[2019-07-13] MEDS ORDERED: DESVENLAFAXINE 50 MG TABLET PO SCH (09:00)
[2019-07-13] MEDS ORDERED: FENOFIBRATE 145 MG TABLET PO SCH (09:00)
[2019-07-13] MEDS: PANTOPRAZOLE 40 MG VIAL IV SCH (09:07)
[2019-07-13] MEDS: tiZANidine 4 MG TABLET PO SCH ×2 (09:09→18:13)
[2019-07-13] MEDS: FUROSEMIDE 20 MG TABLET PO SCH (09:10)
[2019-07-13] MEDS: FOLIC ACID 1 MG TABLET PO SCH (09:12)
[2019-07-13] MEDS ORDERED: SODIUM CHLORIDE 0.9% 1,000 ML IV PRN (10:34)
[2019-07-13 11:56] LABS: Hemoglobin A1 (Alkaline) 96.9 % (96.5-98.5); Hemoglobin A2 (Alkaline) 3.1 % (1.5-3.5)
[2019-07-13 16:30] VITALS: BP 111/55
[2019-07-16 10:00] LABS: Erythropoietin 5.8 mIU/mL (2.6 - 18.5)
== END 2019-07-13 17:30 | disposition home or self-care (01) | DRG 812 ==
LOC: N.ED 10:38 → N.EDINP 12:24 → N.2E 14:09
PROVIDERS: ADMIT Hospitalist; ATTEND Hospitalist

== ENCOUNTER 2019-07-28 07:36 | Inpatient (IN) ==
[2019-07-28 07:59] LABS: Basophils % 0.2 % (0.0-0.8); Hemoglobin 12.2 GM/DL (14.0-18.0); Immature Granulocytes % 0.8 %; Immature Granulocytes Absolute 0.04 #; Lymphocytes # 2.5 10*3/uL (1.4-4.0); Lymphocytes % 49.6 % (21.2-54.2); Mean Corpuscular HGB Conc 30.5 GM/DL (32-36); Mean Corpuscular Volume 96.2 FL (87-102); Mean Platelet Volume 11.2 FL (9.6-12.0); NRBC # 0.03 10*3/uL; Neutrophils % 47.4 % (38.7-73.9); Platelet Count 208 T/CUMM (130-400); Red Blood Count 4.16 MC/CUMM (3.8-5.5); Red Cell Distribution Width 16.9 % (9.3-17.3); White Blood Count 5.1 T/CUMM (4-12)
[2019-07-28] MEDS ORDERED: LEVOFLOXACIN INJ 500 MG in PREMIX 1 EACH IV STA (08:02)
[2019-07-28 08:03] LABS: ABG Base Excess -15.4 MMOL/L (-2.5-2.5); ABG HCO3 12.6 MMOL/L (20-26); ABG Oxygen Saturation 75.8 % (95-100); ABG PCO2 36.9 MM HG (35-48); ABG PO2 49.5 MM HG (80-95); ABG TCO2 13.7 MMOL/L (23-27)
[2019-07-28 08:20] LABS: Band Neutrophils 8 % (0-10); Hypochromasia Slight; Lymphocytes 38 % (20-55); Nucleated Red Blood Cells 2 (0-5); Ovalocytes Slight; Platelet Estimate Adequate; Segmented Neutrophils 51 % (50-85); Total Cells Counted 100
[2019-07-28 08:25] LABS: Albumin 2.1 G/DL (3.4-5.0); Bilirubin,Total 0.8 MG/DL (0.2-1.0); Calcium 7.5 MG/DL (8.5-10.1); Osmolality,Calculated 285.3 MOS/KG (273-304); Total Protein 5.5 G/DL (6.4-8.3)
[2019-07-28] MEDS ORDERED: SODIUM CHLORIDE 0.9% 500 ML IV STA (08:26)
[2019-07-28] MEDS ORDERED: ROCURONIUM 100 MG/10 ML VIAL IV ONE (08:33)
[2019-07-28] MEDS ORDERED: ETOMIDATE 20 MG/10 ML VIAL IV ONE (08:33)
[2019-07-28] MEDS ORDERED: MIDAZOLAM 100 MG in SODIUM CHLORIDE 0.9% 80 ML IV PRN (08:41)
[2019-07-28] MEDS ORDERED: SODIUM CHLORIDE 0.9% 1,650 ML IV ONE (09:02)
[2019-07-28] MEDS ORDERED: ONDANSETRON 4 MG/2 ML VIAL IV PRN (10:38)
[2019-07-28] MEDS ORDERED: ALBUTEROL 2.5 MG/3 ML NEB RESP TX PRN (10:38)
[2019-07-28] MEDS: PANTOPRAZOLE 40 MG VIAL IV SCH (11:12)
[2019-07-28] MEDS: MEROPENEM 500 MG in SODIUM CHLORIDE 0.9% 100 ML IV SCH ×2 (11:13→22:38)
[2019-07-28] MEDS: NOREPINEPHRINE 8 MG in SODIUM CHLORIDE 0.9% 242 ML IV PRN ×3 (11:52→23:12)
[2019-07-28 11:53] LABS: Apearance,Urine CLOUDY (Clear); Bacteria,Urine Occasional /HPF (Few); Bilirubin,Urine Negative (Negative); Blood, Urine Moderate mg/dL (Negative); Glucose,Urine (UA) Negative (Negative); Hyaline Casts,Urine 14 /LPF (0-3); Ketones,Urine Negative (Negative); Mucus,Urine Few /LPF (Occasional); Nitrite,Urine Negative (Negative); Protein,Urine Negative; RBC,Urine 29 /HPF (0-4); Urine Specific Gravity 1.024 (1.001-1.035); Urine Urobilinogen < 2.0 EU/DL (0.2-1.0); WBC,Urine 193 /HPF (0-6)
[2019-07-28 11:55] LABS: Urine Color Yellow (Yellow)
[2019-07-28 13:21] LABS: ABG Base Excess -17.9 MMOL/L (-2.5-2.5); ABG HCO3 11.3 MMOL/L (20-26); ABG Oxygen Saturation 98.9 % (95-100); ABG PCO2 51.2 MM HG (35-48); ABG TCO2 12.9 MMOL/L (23-27)
[2019-07-28 13:25] LABS: ABG PH 7.028 (7.35-7.45)
[2019-07-28] MEDS ORDERED: methylPREDNISolone SOD SUC 40 MG/1 ML VIAL IV SCH (14:30)
[2019-07-28] MEDS: ALBUTEROL/IPRATROPIUM 3 ML NEB RESP TX SCH ×2 (15:10→19:18)
[2019-07-28] MEDS: LINEZOLID INJ 600 MG in PREMIX 1 EACH IV SCH (16:16)
[2019-07-28] MEDS: methylPREDNISolone SOD SUC 40 MG/1 ML VIAL IV SCH ×2 (16:16→22:38)
[2019-07-28] MEDS: SODIUM CHLORIDE 0.9% 1,000 ML IV SCH (16:23)
[2019-07-28] MEDS: PHENYLEPHRINE DRIP 40 MG/250 ML PREMIX IV PRN (18:35)
[2019-07-28 20:55] LABS: ABG Base Excess -23.4 MMOL/L (-2.5-2.5); ABG HCO3 8.5 MMOL/L (20-26); ABG Oxygen Saturation 92.3 % (95-100); ABG PCO2 61.6 MM HG (35-48); ABG TCO2 11.7 MMOL/L (23-27)
[2019-07-28] MEDS ORDERED: SODIUM BICARBONATE 50 MEQ/50 ML VIAL IV ONE (21:06)
[2019-07-29] MEDS ORDERED: SODIUM BICARBONATE 50 MEQ/50 ML VIAL IV ONE ×2 (00:13→04:49)
[2019-07-29 00:21] LABS: ABG Base Excess -18.7 MMOL/L (-2.5-2.5); ABG Oxygen Saturation 94.2 % (95-100); ABG PCO2 49.6 MM HG (35-48); ABG PH 7.026 (7.35-7.45); ABG PO2 79.7 MM HG (80-95); ABG TCO2 12.3 MMOL/L (23-27)
[2019-07-29] MEDS: PHENYLEPHRINE DRIP 40 MG/250 ML PREMIX IV PRN ×5 (00:34→08:56)
[2019-07-29] MEDS: SODIUM CHLORIDE 0.9% 1,000 ML IV SCH ×2 (00:34→02:34)
[2019-07-29] MEDS: ALBUTEROL/IPRATROPIUM 3 ML NEB RESP TX SCH ×4 (01:17→19:14)
[2019-07-29] MEDS: LINEZOLID INJ 600 MG in PREMIX 1 EACH IV SCH ×2 (02:05→14:39)
[2019-07-29 04:11] LABS: ABG Base Excess -19.9 MMOL/L (-2.5-2.5); ABG HCO3 10.2 MMOL/L (20-26); ABG Oxygen Saturation 92.4 % (95-100); ABG PCO2 46.4 MM HG (35-48); ABG PO2 74.9 MM HG (80-95); ABG TCO2 11.2 MMOL/L (23-27)
[2019-07-29] MEDS ORDERED: ALBUMIN 5% 25 GM in PREMIX 1 EACH IV ONE (04:34)
[2019-07-29] MEDS ORDERED: ALBUMIN 5% 12.5 GM/250 ML VIAL IV ONE (04:36)
[2019-07-29] MEDS: NOREPINEPHRINE 8 MG in SODIUM CHLORIDE 0.9% 242 ML IV PRN (05:05)
[2019-07-29 05:07] LABS: Basophils % 0.6 % (0.0-0.8); Hematocrit 39.9 VOL% (42.0-52.0); Hemoglobin 12.2 GM/DL (14.0-18.0); Immature Granulocytes % 7.9 %; Immature Granulocytes Absolute 0.25 #; Lymphocytes # 0.8 10*3/uL (1.4-4.0); Lymphocytes % 23.7 % (21.2-54.2); Mean Corpuscular HGB Conc 30.6 GM/DL (32-36); Mean Platelet Volume 10.4 FL (9.6-12.0); Monocytes % 2.8 % (1.7-12.7); NRBC # 0.05 10*3/uL; Platelet Count 302 T/CUMM (130-400); Red Blood Count 4.07 MC/CUMM (3.8-5.5); White Blood Count 3.2 T/CUMM (4-12)
[2019-07-29] MEDS: SODIUM BICARB INJ 100 MEQ in DEXTROSE 5% 1,000 ML IV SCH ×2 (05:11→16:13)
[2019-07-29 05:17] LABS: Calcium 7.2 MG/DL (8.5-10.1); Osmolality,Calculated 283.8 MOS/KG (273-304)
[2019-07-29] MEDS: DEXTROSE 10% 250 ML BAG IV PRN ×4 (05:41→19:38)
[2019-07-29] MEDS: methylPREDNISolone SOD SUC 40 MG/1 ML VIAL IV SCH ×3 (06:20→23:54)
[2019-07-29 07:23] LABS: Band Neutrophils 2 % (0-10); Lymphocytes 30 % (20-55); Metamyelocytes 1 %; Myelocytes 1 %; Segmented Neutrophils 56 % (50-85); Total Cells Counted 100
[2019-07-29 07:24] LABS: Macrocytosis 1+
[2019-07-29] MEDS: NOREPINEPHRINE 16 MG in SODIUM CHLORIDE 0.9% 234 ML IV PRN ×2 (08:10→16:36)
[2019-07-29] MEDS ORDERED: GLUCAGON 1 MG VIAL IM PRN (09:11)
[2019-07-29] MEDS ORDERED: DEXTROSE 50% 25 GM/50 ML VIAL IV PRN (09:11)
[2019-07-29] MEDS ORDERED: fentaNYL 75 MCG/HR PATCH TRANSDERM SCH (09:30)
[2019-07-29] MEDS: HYDROCORTISONE 100 MG VIAL IV SCH ×3 (09:54→21:27)
[2019-07-29] MEDS: MORPHINE 4 MG/1 ML VIAL IV SCH ×3 (09:55→21:27)
[2019-07-29] MEDS: MEROPENEM 500 MG in SODIUM CHLORIDE 0.9% 100 ML IV SCH ×2 (09:56→21:27)
[2019-07-29] MEDS: PANTOPRAZOLE 40 MG VIAL IV SCH (10:01)
[2019-07-29 12:33] LABS: ABG Base Excess -17.5 MMOL/L (-2.5-2.5); ABG HCO3 11.3 MMOL/L (20-26); ABG Oxygen Saturation 98.3 % (95-100); ABG PCO2 41.1 MM HG (35-48); ABG TCO2 11.6 MMOL/L (23-27)
[2019-07-29 12:38] LABS: ABG PH 7.074 (7.35-7.45)
[2019-07-29] MEDS ORDERED: VASOPRESSIN 100 UNITS in SODIUM CHLORIDE 0.9% 95 ML IV PRN (15:00)
[2019-07-29] MEDS: PHENYLEPHRINE INJ 80 MG in SODIUM CHLORIDE 0.9% 242 ML IV PRN ×2 (15:02→18:05)
[2019-07-29 18:49] VITALS: BP 108/46
[2019-07-29] MEDS ORDERED: SODIUM CHLORIDE 0.9% 500 ML IV ONE (22:36)
[2019-07-30] MEDS: NOREPINEPHRINE 16 MG in SODIUM CHLORIDE 0.9% 234 ML IV PRN (00:08)
== END 2019-07-30 00:06 | disposition expired | DRG 208 ==
LOC: EDUNIT# → EDBD → N.ED 07:36 → N.EDINP 09:05 → N.CC 09:41
PROVIDERS: ADMIT Internal Medicine; ATTEND Internal Medicine